=== PATIENT | female | born 1940 | race Caucasian/White ===

== ENCOUNTER 2019-10-24 10:34 | Observation (INO) | payer MEDICARE, MEDICAID ==
[~2019-10-24] VITALS: Ht 157.5 cm; Wt 60.0 kg
--- NOTE | 2019-10-24 10:53 | NUR ---
TAKEN OVER FROM NURSE GARRETT,PT STATED THAT SHE IS HAVING CP RADIATING TO LFT ARM AND JAW 4/10 WITH NUMBNESS TO LFT ARM STARTED A WEEK AGO NOW GETTING WORSE.H/O TIA IN PAST .FAMILY H/O STROKE ,PT BP WAS HIGH FROM YEST AND INCRESED HER DOSE OF LISINOPRIL ,PT WAS SEEN BY DR JEFFERY ADAMS. MARY LEAL AT BEDSIDE FOR ASSESSMENT.
--- NOTE | 2019-10-24 11:25 | NUR ---
SENT STROKE ALERT LEVEL 2 PAGED AT 9607 ONSET UNKNOWN
--- NOTE | 2019-10-24 11:30 | NUR ---
PT BLD SUGAR 61 GIVEN GRAM CRACKER AND APPLE JUICE PT WAS ABLE TO SWALLOE IT WITHOUT ANY DIFFICULITY.166/76BP,99% ON RA,HR 74.
--- NOTE | 2019-10-24 11:34 | NUR ---
PT GOING TO CT SCAN .
--- NOTE | 2019-10-24 11:38 | NUR ---
WILL RECHECK THE BLD SUGAR PT IS BACK FROM CT SCAN.
--- NOTE | 2019-10-24 11:49 | NUR ---
PT BACK FROM CT SCAN ,IN STABLE CONDITION LAB AT BEDSIDE TO DRAW BLOOD ,PT BLD SUGAR 81,BP 142/65,HR 71,SPO2 100 RA.
[2019-10-24 11:54] LABS: ALANINE AMINOTRANSFERASE 11 U/L (12-78); ALBUMIN 3.7 G/DL (3.4-5.0); ALBUMIN/GLOBULIN RATIO 1.1 (1.1-1.5); ALKALINE PHOSPHATASE 95 IU/L (46-116); ANION GAP 11 (8-16); ASPARTATE AMINO TRANSFERASE 20 U/L (10-37); BILIRUBIN,TOTAL 0.5 MG/DL (0.1-1.0); BLOOD UREA NITROGEN 8 MG/DL (7-18); BUN/CREATININE RATIO 9.9 (6.6-38.0); CALCIUM 8.9 MG/DL (8.5-10.1); CHLORIDE 106 MMOL/L (99-107); CREATININE 0.81 MG/DL (0.40-0.90); GLUCOSE 74 MG/DL (70-104); POTASSIUM 3.4 MMOL/L (3.5-5.1); SODIUM 142 MMOL/L (135-145); TOTAL CARBON DIOXIDE 25.5 MMOL/L (24-32); eGFR 69 ML/MIN
[2019-10-24] MEDS ORDERED: aspirin 81mg tab.chew PO ONE (12:20)
[2019-10-24 12:37] LABS: BASOPHILS # (AUTO) 0.1 X10'3 (0-0.2); EOSINOPHILS % (AUTO) 0.9 % (0-6); HEMATOCRIT 41.6 % (35.0-45.0); HEMOGLOBIN 13.6 g/dl (12.0-16.0); LYMPHOCYTES # (AUTO) 1.4 X10'3 (1.1-4.8); LYMPHOCYTES % (AUTO) 29.3 % (21-51); MEAN CORPUSCULAR HEMOGLOBIN 29.9 PG (27.0-31.0); MEAN CORPUSCULAR HGB CONC 32.8 g/dL (33.0-36.5); MEAN CORPUSCULAR VOLUME 91.1 FL (78-98); MEAN PLATELET VOLUME 9.9 FL (7.4-10.4); MONOCYTES # (AUTO) 0.5 X10'3 (0-0.9); MONOCYTES % (AUTO) 9.3 % (2-12); NEUTROPHILS # (AUTO) 2.9 X10'3 (1.8-7.7); NEUTROPHILS % (AUTO) 59.5 % (42-75); PLATELET COUNT 226 X10'3 (140-440); RED BLOOD COUNT 4.57 X10'6 (4.20-5.60); RED CELL DISTRIBUTION WIDTH 14.9 % (11.5-14.5); WHITE BLOOD COUNT 4.8 X10'3 (4.5-11.0)
[2019-10-24] MEDS ORDERED: mag hydrox/Alum hydrox/simeth 30ml oral suspension PO PRN (12:45)
[2019-10-24] MEDS ORDERED: magnesium hydroxide 30ml (MOM) UD suspension PO PRN (12:45)
[2019-10-24] MEDS ORDERED: HYDROcodone/acetaminophen 5mg/325mg tablet PO PRN (12:45)
[2019-10-24] MEDS ORDERED: morphine 2 MG/ML inj. syringe IV PRN ×2 (12:45)
[2019-10-24] MEDS ORDERED: ondansetron/PF 4mg/2ml inj IV PRN (12:45)
[2019-10-24] MEDS ORDERED: acetaminophen 325mg tablet PO PRN ×2 (12:45)
[2019-10-24] MEDS ORDERED: iohexol 350MG/ML 100ml bottle IV ONE (13:00)
[2019-10-24 13:30] LABS: HEMOGLOBIN A1C 5.6 % (4.5-6.2)
[2019-10-24] MEDS ORDERED: LISI10TA4 PO (13:46)
--- NOTE | 2019-10-24 14:26 | NUR ---
PT IV IS NOT WORKING,LOGAN COCHRAN GOING TO PAGE PIC LINE NURSE.
--- NOTE | 2019-10-24 17:29 | NUR ---
Patient in room ED 9. I have received report from Mendoza HARDY and had the opportunity to ask questions and assume patient care.
--- NOTE | 2019-10-24 17:36 | NUR ---
PAGER ID: [phone] MESSAGE: [phone] Tiffany, M Can I get replacement protocol for this patient? K 3.4. Hina [id number]
--- NOTE | 2019-10-24 17:41 | NUR ---
Patient arrived to the unit, walked to the bed from hallway independently and steady.
--- NOTE | 2019-10-24 18:00 | NUR ---
Patient in room [facility] 348. I have received report from HAYLEY Santamaria and had the opportunity to ask questions and assume patient care.
--- NOTE | 2019-10-24 18:34 | NUR ---
Problems reprioritized. Patient report given, questions answered & plan of care reviewed with Claire HARDY.
[2019-10-24 20:00] VITALS: BP_SYST 102; BP_SYST 107; BP_SYST 108; BP_SYST 130; BP_DIAS 52; BP_DIAS 55; BP_DIAS 61
[2019-10-24 21:38] VITALS: BP 120/61
[2019-10-25] VITALS: BP 111/50
[2019-10-25 00:02] VITALS: BP 111/50
[2019-10-25 04:09] VITALS: BP 127/64
[2019-10-25 05:46] LABS: BASOPHILS # (AUTO) 0.1 X10'3 (0-0.2); BASOPHILS % (AUTO) 1.2 % (0-1); HEMATOCRIT 38.6 % (35.0-45.0); HEMOGLOBIN 12.8 g/dl (12.0-16.0); LYMPHOCYTES # (AUTO) 1.2 X10'3 (1.1-4.8); LYMPHOCYTES % (AUTO) 27.1 % (21-51); MEAN CORPUSCULAR HEMOGLOBIN 29.9 PG (27.0-31.0); MEAN CORPUSCULAR HGB CONC 33.1 g/dL (33.0-36.5); MEAN CORPUSCULAR VOLUME 90.5 FL (78-98); MEAN PLATELET VOLUME 10.3 FL (7.4-10.4); MONOCYTES # (AUTO) 0.4 X10'3 (0-0.9); MONOCYTES % (AUTO) 9.9 % (2-12); NEUTROPHILS # (AUTO) 2.7 X10'3 (1.8-7.7); NEUTROPHILS % (AUTO) 60.8 % (42-75); PLATELET COUNT 208 X10'3 (140-440); RED BLOOD COUNT 4.27 X10'6 (4.20-5.60); RED CELL DISTRIBUTION WIDTH 15.1 % (11.5-14.5); WHITE BLOOD COUNT 4.5 X10'3 (4.5-11.0)
--- NOTE | 2019-10-25 06:10 | NUR ---
Patient in room [facility] 348. I have received report from CRISSY HARDY and had the opportunity to ask questions and assume patient care.
--- NOTE | 2019-10-25 06:14 | NUR ---
Problems reprioritized. Patient report given, questions answered & plan of care reviewed with Lilly HARDY.
[2019-10-25 06:25] LABS: ALBUMIN 3.2 G/DL (3.4-5.0); ANION GAP 9 (8-16); BLOOD UREA NITROGEN 15 MG/DL (7-18); BUN/CREATININE RATIO 20.8 (6.6-38.0); CALCIUM 8.7 MG/DL (8.5-10.1); CHLORIDE 108 MMOL/L (99-107); CHOL/HDL RATIO 2.6 (0.00-4.99); CHOLESTEROL 187 MG/DL (0-200); CREATININE 0.72 MG/DL (0.40-0.90); GLUCOSE 99 MG/DL (70-104); HDL CHOLESTEROL 72 MG/DL (35-60); LDL CHOLESTEROL 101 MG/DL (50-100); POTASSIUM 3.9 MMOL/L (3.5-5.1); SODIUM 143 MMOL/L (135-145); TOTAL CARBON DIOXIDE 25.6 MMOL/L (24-32); TRIGLYCERIDES 46 MG/DL (20-135); eGFR 79 ML/MIN
[2019-10-25 08:00] VITALS: BP 129/52
[2019-10-25] MEDS ORDERED: aspirin 81mg tablet.DR PO SCH (08:00)
[2019-10-25 11:00] VITALS: BP_SYST 147; BP_SYST 151; BP_SYST 157; BP_SYST 164; BP_DIAS 51; BP_DIAS 78; BP_DIAS 80
[2019-10-25] MEDS ORDERED: ATOR80TA PO (11:09)
[2019-10-25] MEDS ORDERED: APIX5TAB3 PO (11:09)
[2019-10-25] MEDS ORDERED: ASPI-1071 PO (11:09)
[2019-10-25] MEDS ORDERED: lisinopril 10 MG tablet PO ONE (11:45)
[2019-10-25 11:56] VITALS: BP_SYST 147
--- NOTE | 2019-10-25 12:57 | NUR ---
PATIENT DISCHARGED SAFELY WITH CAREGIVER. ALL BELONGINGS IN POSSESSION. PATIENT VERBALIZES UNDERSTANDING OF DC INSTRUCTIONS. PRESCRIPTIONS E-SENT TO ART RANGEL.
[2019-10-26] MEDS ORDERED: lisinopril 10 MG tablet PO SCH (08:00)
--- NOTE | 2019-10-26 13:20 | NUR ---
Case Management DC follow up: LMVM post DC status, questions, concerns
== END 2019-10-25 12:57 | disposition home or self-care (01) ==
LOC: ER 10:34 → ED HOLD 12:43 → SUR 3N 17:35
PROVIDERS: ADMIT Internal Medicine; ATTEND Family Medicine
DX: I10 Essential (primary) hypertension (principal); G45.9 Transient cerebral ischemic attack, unspecified; I48.0 Paroxysmal atrial fibrillation; Z87.891 Personal history of nicotine dependence; Z79.899 Other long term (current) drug therapy; Z88.0 Allergy status to penicillin; Z88.2 Allergy status to sulfonamides
CPT/HCPCS: 36415; 70450; 70496; 70498; 70551; 71045; 76937; 80048; 80053; 80061; 82948; 83036; 83880; 84443; 84484; 85025; 85651; 87081; 92508; 92616; 93005; 93306; 97161; 97530; 99285; G0378; Q9967

== ENCOUNTER 2019-10-27 15:28 | Emergency (ER) | payer MEDICARE, MEDICAID ==
[~2019-10-27] VITALS: Ht 157.5 cm; Wt 60.0 kg
[~2019-10-27 15:28] MED LIST: APIX5TAB3 PO; ASPI-1071 PO; ATOR80TA PO; LISI10TA4 PO
[2019-10-27] MEDS ORDERED: labetalol 20mg/4ml (5mg/ml) syringe IV ONE (15:50)
[2019-10-27 16:13] LABS: BASOPHILS % (AUTO) 0.7 % (0-1); EOSINOPHILS # (AUTO) 0.1 X10'3 (0-0.9); HEMATOCRIT 38.5 % (35.0-45.0); HEMOGLOBIN 12.7 g/dl (12.0-16.0); LYMPHOCYTES % (AUTO) 47.4 % (21-51); MEAN CORPUSCULAR HEMOGLOBIN 29.9 PG (27.0-31.0); MEAN CORPUSCULAR VOLUME 90.6 FL (78-98); MEAN PLATELET VOLUME 9.5 FL (7.4-10.4); MONOCYTES # (AUTO) 0.5 X10'3 (0-0.9); MONOCYTES % (AUTO) 11.8 % (2-12); NEUTROPHILS # (AUTO) 1.6 X10'3 (1.8-7.7); NEUTROPHILS % (AUTO) 38.1 % (42-75); PLATELET COUNT 212 X10'3 (140-440); RED BLOOD COUNT 4.24 X10'6 (4.20-5.60); WHITE BLOOD COUNT 4.2 X10'3 (4.5-11.0)
[2019-10-27 16:25] LABS: ALANINE AMINOTRANSFERASE 17 U/L (12-78); ALBUMIN 3.5 G/DL (3.4-5.0); ALBUMIN/GLOBULIN RATIO 1.1 (1.1-1.5); ALKALINE PHOSPHATASE 105 IU/L (46-116); ANION GAP 5 (8-16); ASPARTATE AMINO TRANSFERASE 20 U/L (10-37); BILIRUBIN,TOTAL 0.4 MG/DL (0.1-1.0); BLOOD UREA NITROGEN 8 MG/DL (7-18); BUN/CREATININE RATIO 11.1 (6.6-38.0); CALCIUM 8.6 MG/DL (8.5-10.1); CHLORIDE 110 MMOL/L (99-107); CREATININE 0.72 MG/DL (0.40-0.90); GLUCOSE 82 MG/DL (70-104); POTASSIUM 3.6 MMOL/L (3.5-5.1); SODIUM 144 MMOL/L (135-145); TOTAL CARBON DIOXIDE 28.6 MMOL/L (24-32); TOTAL PROTEIN 6.6 G/DL (6.4-8.2); eGFR 79 ML/MIN
[2019-10-27 16:41] VITALS: BP 122/64
[2019-10-27] MEDS ORDERED: CLON-529 PO (16:41)
== END 2019-10-27 17:39 | disposition home or self-care (01) ==
LOC: ER 15:29
DX: I10 Essential (primary) hypertension (principal); I48.91 Unspecified atrial fibrillation; Z86.73 Personal history of transient ischemic attack (TIA), and cerebral infarction without residual deficits; Z98.890 Other specified postprocedural states; Z88.0 Allergy status to penicillin; Z88.2 Allergy status to sulfonamides; Z79.01 Long term (current) use of anticoagulants; Z79.82 Long term (current) use of aspirin; Z79.899 Other long term (current) drug therapy
CPT/HCPCS: 36415; 80053; 83735; 83880; 84484; 85025; 93005; 99284

== ENCOUNTER 2019-11-07 09:05 | Emergency (ER) | payer MEDICARE, MEDICAID ==
[~2019-11-07] VITALS: Ht 157.5 cm; Wt 65.0 kg
[~2019-11-07 09:05] MED LIST changes: +CLON-529 PO
[2019-11-07 11:41] VITALS: BP 144/73
== END 2019-11-07 11:45 | disposition home or self-care (01) ==
LOC: ER 09:05
DX: R53.1 Weakness (principal); T50.995A Adverse effect of other drugs, medicaments and biological substances, initial encounter; I48.91 Unspecified atrial fibrillation; I10 Essential (primary) hypertension; Z86.73 Personal history of transient ischemic attack (TIA), and cerebral infarction without residual deficits; Z98.890 Other specified postprocedural states; Z88.0 Allergy status to penicillin; Z88.2 Allergy status to sulfonamides; Z79.82 Long term (current) use of aspirin; Z79.899 Other long term (current) drug therapy; Y92.89 Other specified places as the place of occurrence of the external cause
CPT/HCPCS: 99281

== ENCOUNTER 2020-04-11 23:42 | Emergency (ER) | payer MEDICARE, MEDICAID ==
[~2020-04-11] VITALS: Ht 157.5 cm; Wt 54.1 kg
[~2020-04-11 23:42] MED LIST changes: -ATOR80TA PO
[2020-04-12 00:33] LABS: BASOPHILS % (AUTO) 0.7 % (0-1); EOSINOPHILS # (AUTO) 0.1 X10'3 (0-0.9); EOSINOPHILS % (AUTO) 1.6 % (0-6); HEMATOCRIT 38.2 % (35.0-45.0); HEMOGLOBIN 12.8 g/dl (12.0-16.0); LYMPHOCYTES # (AUTO) 1.4 X10'3 (1.1-4.8); LYMPHOCYTES % (AUTO) 38.3 % (21-51); MEAN CORPUSCULAR HEMOGLOBIN 30.8 PG (27.0-31.0); MEAN CORPUSCULAR HGB CONC 33.4 g/dL (33.0-36.5); MEAN CORPUSCULAR VOLUME 92.2 FL (78-98); MEAN PLATELET VOLUME 9.5 FL (7.4-10.4); MONOCYTES # (AUTO) 0.4 X10'3 (0-0.9); MONOCYTES % (AUTO) 11.2 % (2-12); NEUTROPHILS # (AUTO) 1.8 X10'3 (1.8-7.7); NEUTROPHILS % (AUTO) 48.2 % (42-75); PLATELET COUNT 240 X10'3 (140-440); RED BLOOD COUNT 4.14 X10'6 (4.20-5.60); RED CELL DISTRIBUTION WIDTH 13.6 % (11.5-14.5); WHITE BLOOD COUNT 3.7 X10'3 (4.5-11.0)
[2020-04-12 00:46] LABS: ALANINE AMINOTRANSFERASE 16 U/L (12-78); ALBUMIN 3.5 G/DL (3.4-5.0); ALKALINE PHOSPHATASE 104 IU/L (46-116); ANION GAP 7 (8-16); ASPARTATE AMINO TRANSFERASE 20 U/L (10-37); BILIRUBIN,TOTAL 0.5 MG/DL (0.1-1.0); BLOOD UREA NITROGEN 7 MG/DL (7-18); CHLORIDE 105 MMOL/L (99-107); CREATININE 0.78 MG/DL (0.40-0.90); GLUCOSE 99 MG/DL (70-104); POTASSIUM 3.5 MMOL/L (3.5-5.1); SODIUM 140 MMOL/L (135-145); eGFR 72 ML/MIN
[2020-04-12] MEDS ORDERED: CLON-529 PO (03:04)
--- NOTE | 2020-04-12 04:41 | NUR ---
PT STATES SHE WILL BE ABLE TO HAVE HER HOME HEALTHCARE WORKER PICK HER UP AT 0600 THIS AM. METAL WORK DUCT INSTALLER LOGAN AWARE.
[2020-04-12 05:36] VITALS: BP 123/64
== END 2020-04-12 06:22 | disposition home or self-care (01) ==
LOC: ER 23:42
DX: R53.1 Weakness (principal); R41.0 Disorientation, unspecified; I10 Essential (primary) hypertension; M25.512 Pain in left shoulder; R07.9 Chest pain, unspecified; I48.91 Unspecified atrial fibrillation; Z76.0 Encounter for issue of repeat prescription; Z86.73 Personal history of transient ischemic attack (TIA), and cerebral infarction without residual deficits; Z98.890 Other specified postprocedural states; Z88.0 Allergy status to penicillin; Z88.1 Allergy status to other antibiotic agents; Z79.82 Long term (current) use of aspirin; Z79.899 Other long term (current) drug therapy
CPT/HCPCS: 36415; 70450; 71045; 80053; 83880; 84484; 85025; 93005; 99285